=== PATIENT | male | born 1940 | race African-American/Black ===

== ENCOUNTER 2017-05-12 19:28 | Observation (INO) | payer MEDICAID ==
[~2017-05-12] VITALS: Ht 172.7 cm; Wt 65.8 kg
[~2017-05-12 19:28] MED LIST: LEVO750T21 PO; METO1TAB26 PO; TOPI50TA
[2017-05-12] MEDS ORDERED: SODIUM CHLORIDE 0.9% 1,000 ML IV ONE (21:02)
[2017-05-12 22:15] LABS: MEAN CORPUSCULAR VOLUME 81.9 fL (80.0-94.0); MEAN PLATELET VOLUME 7.9 fl (7.4-10.4); PLATELET 251 x1000/uL (130-400); RED BLOOD CELL COUNT 2.57 mill/uL (4.7-6.1); RED CELL DISTRIBUTION WIDTH 18.3 % (11.6-14.6)
[2017-05-12 22:18] LABS: INR 1.1; PROTHROMBIN TIME 11.4 sec (9.4-11.6)
[2017-05-12 22:19] LABS: HEMOGLOBIN. 6.9 g/dL (14.0-18.0)
[2017-05-12 22:27] LABS: CHLORIDE 94 mEq/L (98-107); ETHANOL BLOOD < 10 mg/dL
[2017-05-12 22:29] LABS: TROPONIN I < 0.02 ng/mL (0.00-0.04)
[2017-05-12 22:35] LABS: PLATELET ESTIMATE NORMAL
[2017-05-13] VITALS (10 sets, daily range): BP systolic 93–105; BP diastolic 57–69
[2017-05-13] MEDS ORDERED: DEXTROSE 50% WATER 50ML SYRINGE IV PRN (03:45)
[2017-05-13] MEDS ORDERED: LACT10SO6 MT (04:22)
[2017-05-13] MEDS ORDERED: MULT-1146 PO (04:22)
[2017-05-13] MEDS ORDERED: GABA-529 PO (04:22)
[2017-05-13] MEDS ORDERED: [UNRECOGNIZED DRUG - OTHER] (04:22)
[2017-05-13] MEDS ORDERED: FAMO-135 PO (04:22)
[2017-05-13] MEDS ORDERED: DOCU-138 PO (04:22)
[2017-05-13] MEDS ORDERED: POTA10TA15 PO (04:22)
[2017-05-13] MEDS ORDERED: FOLI-43 PO (04:22)
[2017-05-13] MEDS ORDERED: MOM PO (04:22)
[2017-05-13] MEDS ORDERED: ACET-2178 PO (04:22)
[2017-05-13] MEDS ORDERED: DULO60CA44 PO (04:22)
[2017-05-13] MEDS ORDERED: NORCO (04:22)
[2017-05-13] MEDS: ASPIRIN 81MG TABLET PO SCH (05:05)
[2017-05-13] MEDS: INSULIN LISPRO 100 UNITS/ML SUBCUT SCH ×4 (06:22→20:47)
[2017-05-13] MEDS: BLOOD SUGAR DIAGNOSTIC STRIP TEST SCH ×4 (06:22→20:39)
[2017-05-13] MEDS: PANTOPRAZOLE 40MG DR TABLET PO SCH (06:22)
[2017-05-13 11:11] LABS: CHLORIDE 97 mEq/L (98-107); HEMATOCRIT. 32.3 % (42.0-52.0); HEMOGLOBIN. 10.8 g/dL (14.0-18.0); MEAN CORPUSCULAR HEMOGLOBIN 28.1 pg (28.0-32.0); MEAN CORPUSCULAR VOLUME 84.2 fL (80.0-94.0); PLATELET 241 x1000/uL (130-400); RED BLOOD CELL COUNT 3.83 mill/uL (4.7-6.1); RED CELL DISTRIBUTION WIDTH 17.4 % (11.6-14.6)
[2017-05-13 16:04] LABS: PLATELET ESTIMATE NORMAL
[2017-05-14] VITALS: BP 120/76
[2017-05-14 04:00] VITALS: BP 118/79
[2017-05-14] MEDS: BLOOD SUGAR DIAGNOSTIC STRIP TEST SCH ×2 (05:49→11:51)
[2017-05-14] MEDS: PANTOPRAZOLE 40MG DR TABLET PO SCH (06:23)
[2017-05-14] MEDS: INSULIN LISPRO 100 UNITS/ML SUBCUT SCH ×2 (06:48→11:54)
[2017-05-14 07:37] VITALS: BP 112/72
[2017-05-14] MEDS: ASPIRIN 81MG TABLET PO SCH (09:12)
[2017-05-14 10:23] VITALS: BP_SYST 101; BP_SYST 112; BP_DIAS 71; BP_DIAS 72
[2017-05-14 11:42] VITALS: BP 101/71
[2017-05-14 16:10] VITALS: BP 117/75
== END 2017-05-14 17:00 ==
LOC: ER 19:32 → EDBEDREQ 21:10 → INTOOBSV 22:29 → 8WST 22:29 → EDBEDREQSVC 22:32 → EDBEDREQ 22:32 → ENRESERV 23:30
PROVIDERS: ADMIT Internal Medicine; ATTEND Internal Medicine
DX: D64.9 Anemia, unspecified (principal); E11.9 Type 2 diabetes mellitus without complications; F03.90 Unspecified dementia, unspecified severity, without behavioral disturbance, psychotic disturbance, mood disturbance, and anxiety; I10 Essential (primary) hypertension; Z86.73 Personal history of transient ischemic attack (TIA), and cerebral infarction without residual deficits
CPT/HCPCS: 36415; 36430; 71045; 80053; 82962; 83605; 83690; 84153; 84484; 85007; 85025; 85027; 85044; 85610; 86850; 86900; 86901; 86920; 93005; 96360; 99285; G0378; G0482; J7030; J7040; P9016

== ENCOUNTER 2017-11-02 21:34 | Emergency (ER) | payer MEDICAID ==
[~2017-11-02] VITALS: Ht 172.7 cm; Wt 69.0 kg
[~2017-11-02 21:34] MED LIST changes: +ACET-2178 PO; +DOCU-138 PO; +DULO60CA44 PO; +FAMO-135 PO; +FOLI-43 PO; +GABA-529 PO; +LACT10SO6 MT; +MOM PO; +MULT-1146 PO; +NORCO; +POTA10TA15 PO; +[UNRECOGNIZED DRUG - OTHER]
[2017-11-03] MEDS ORDERED: LIDOCAINE HCL/PF 1% 10 MG/ML 5ML VIAL IJ SCH (00:20)
[2017-11-03] MEDS ORDERED: LIDOCAINE HCL 1% 20ML VIAL (Pyxis) INJ MC ONE (00:30)
[2017-11-03 02:27] VITALS: BP 115/68
== END 2017-11-03 02:29 | disposition home or self-care (01) ==
LOC: ER 21:47
DX: T83.038A Leakage of other urinary catheter, initial encounter (principal); E11.9 Type 2 diabetes mellitus without complications; I10 Essential (primary) hypertension; F03.90 Unspecified dementia, unspecified severity, without behavioral disturbance, psychotic disturbance, mood disturbance, and anxiety; Y82.8 Other medical devices associated with adverse incidents; Y92.129 Unspecified place in nursing home as the place of occurrence of the external cause; Z85.6 Personal history of leukemia; Z88.0 Allergy status to penicillin; Z86.73 Personal history of transient ischemic attack (TIA), and cerebral infarction without residual deficits
CPT/HCPCS: 51702; 99284; J3490; Z7610; A4315